=== PATIENT | female | born 1950 | race Caucasian/White ===

== ENCOUNTER 2018-07-07 07:31 | Inpatient (IN) | payer MEDICARE, OTHER ==
[2018-06-27 14:18] VITALS: BP 166/89
[~2018-07-07] VITALS: Ht 172.7 cm; Wt 100.9 kg
[~2018-07-07 07:31] MED LIST: CLON1TAB4 PO; CYAN1TAB29 PO; DICL75TA2 PO; ESCI5TAB7 PO; FLUO40CA9 PO; GABA300C10 PO; LANS30CA60 PO; LEVO125T5 PO; LEVO25TA4 PO; LEVO50TA5 PO; LITH300T3 PO; LORA1TAB PO; OMEP40CA6 PO; QUET100T PO; SPIR50TA4 PO; WARF5TAB PO; WARF7.5T PO
[2018-07-07] MEDS ORDERED: LACTATED RINGERS 1,000 ML IV SCH (08:06)
[2018-07-07] MEDS ORDERED: BUPIVACAINE 0.25% ONE (08:13)
[2018-07-07] MEDS ORDERED: methylPREDNISolone*ACETATE* 80 MG/ML ONE (08:13)
[2018-07-07] MEDS ORDERED: MIDAZOLAM 1 MG/ML, 2ML ONE (08:14)
[2018-07-07] MEDS ORDERED: FENTANYL PF 100 MCG/2ML ONE ×2 (08:14→10:57)
[2018-07-07] MEDS ORDERED: BUPIVACAINE/PF 0.5% ONE (08:19)
[2018-07-07] MEDS ORDERED: CEFAZOLIN 1,000 MG ONE ×4 (08:26→09:23)
[2018-07-07] MEDS ORDERED: PROPOFOL 10 MG/ML, 20ML ONE ×4 (08:26→09:23)
[2018-07-07] MEDS ORDERED: SUCCINYLCHOLINE 20 MG/ML, 10ML ONE ×2 (08:27→09:23)
[2018-07-07] MEDS ORDERED: SCOPOLAMINE PATCH, 1.5MG PATCH.TD72 TD ONE (08:30)
[2018-07-07] MEDS ORDERED: ACETAMINOPHEN 500 MG TABLET PO ONE (08:30)
[2018-07-07] MEDS ORDERED: GABAPENTIN 300 MG CAPSULE PO ONE (08:30)
[2018-07-07 08:41] LABS: INTERNATIONAL NORMALIZED RATIO 1.12 (0.93-1.1); PROTHROMBIN TIME 11.6 Seconds (9.6-11.5)
[2018-07-07] MEDS: OMEPRAZOLE 20 MG CAPSULE.DR PO SCH (09:00)
[2018-07-07] MEDS ORDERED: morphine SULFATE 10 MG/ML, 1ML IV PRN (09:00)
[2018-07-07] MEDS ORDERED: ACETAMINOPHEN 325 MG TABLET PO PRN (09:00)
[2018-07-07] MEDS ORDERED: CEFAZOLIN PMX 2GM/50ML 50 ML IVPB SCH (09:00)
[2018-07-07] MEDS: FLUOXETINE HCL 20 MG CAPSULE PO SCH (09:00)
[2018-07-07] MEDS ORDERED: SENNA/DOCUSATE TABLET PO PRN (09:00)
[2018-07-07] MEDS ORDERED: BISACODYL 10 MG SUPP PR PRN (09:00)
[2018-07-07] MEDS ORDERED: DIPHENHYDRAMINE 25 MG CAPSULE PO PRN (09:00)
[2018-07-07] MEDS: LEVOTHYROXINE 25 MCG TABLET PO SCH (09:00)
[2018-07-07] MEDS ORDERED: ALUMINUM/MAG/SIMETHICONE 30 ML UDC PO PRN (09:00)
[2018-07-07] MEDS ORDERED: MAGNESIUM HYDROXIDE 8%, 30ML UDC PO PRN (09:00)
[2018-07-07] MEDS: LEVOTHYROXINE 125 MCG TABLET PO SCH (09:00)
[2018-07-07] MEDS ORDERED: ONDANSETRON 2MG/ML, 2ML IV PRN (09:00)
[2018-07-07] MEDS ORDERED: CLINDAMYCIN 150 MG/ML, 6ML ONE (09:04)
[2018-07-07] MEDS ORDERED: ONDANSETRON 2MG/ML, 2ML ONE (09:22)
[2018-07-07] MEDS ORDERED: DEXAMETHASONE 4 MG/ML, 1ML ONE ×2 (09:22)
[2018-07-07] MEDS ORDERED: KETOROLAC 30 MG/1 ML ONE (09:23)
[2018-07-07] MEDS ORDERED: GLYCOPYRROLATE 0.4 MG/2 ML, 2ML ONE (09:34)
[2018-07-07] MEDS ORDERED: HYDROmorphone 2 MG/ML, 1ML IV PRN (10:00)
[2018-07-07] MEDS ORDERED: OXYcodone 5 MG/5 ML ORAL.SOL UDC PO PRN (10:00)
[2018-07-07] MEDS ORDERED: PROMETHAZINE 25 MG/ML, 1ML IV PRN (10:00)
[2018-07-07] MEDS ORDERED: OXYcodone 5 MG/5 ML ORAL.SOL UDC ONE (10:57)
[2018-07-07] MEDS: HYDROcodone/APAP 10/325 MG TABLET PO SCH ×3 (11:00→21:13)
[2018-07-07] MEDS: FENTANYL PF 100 MCG/2ML IV PRN ×3 (11:00→11:15)
[2018-07-07] MEDS: DOCUSATE 100 MG CAPSULE PO SCH ×2 (15:15→21:14)
[2018-07-07] MEDS: D5%-0.45% NACL 1,000 ML IV SCH ×2 (15:15→19:00)
[2018-07-07] MEDS: WARFARIN 2.5 MG TABLET PO-COUM SCH ×2 (15:15→18:00)
[2018-07-07] MEDS: CEFAZOLIN 2,000 MG in SODIUM CHLORIDE 0.9% 50 ML IVPB SCH ×2 (15:32→23:42)
[2018-07-07] MEDS ORDERED: HYDR-882 PO (16:19)
[2018-07-07 18:12] VITALS: BP 132/78
[2018-07-07] MEDS ORDERED: GABAPENTIN 300 MG CAPSULE PO SCH (21:00)
[2018-07-07] MEDS ORDERED: QUETIAPINE 100MG TABLET PO SCH (21:00)
[2018-07-07] MEDS ORDERED: QUETIAPINE 25MG TABLET ONE (21:06)
[2018-07-08 00:24] VITALS: BP 139/67
[2018-07-08] MEDS: HYDROcodone/APAP 10/325 MG TABLET PO SCH ×3 (01:00→09:54)
[2018-07-08 04:32] VITALS: BP 136/71
[2018-07-08] MEDS: D5%-0.45% NACL 1,000 ML IV SCH (05:00)
[2018-07-08] MEDS: LEVOTHYROXINE 125 MCG TABLET PO SCH (05:39)
[2018-07-08] MEDS: LEVOTHYROXINE 25 MCG TABLET PO SCH (05:43)
[2018-07-08] MEDS: CEFAZOLIN 2,000 MG in SODIUM CHLORIDE 0.9% 50 ML IVPB SCH (07:34)
[2018-07-08] MEDS: FLUOXETINE HCL 20 MG CAPSULE PO SCH (07:35)
[2018-07-08] MEDS: DOCUSATE 100 MG CAPSULE PO SCH (07:35)
[2018-07-08] MEDS: OMEPRAZOLE 20 MG CAPSULE.DR PO SCH (07:35)
[2018-07-08 09:16] VITALS: BP 154/77
[2018-07-08] MEDS ORDERED: WARFARIN 5 MG TABLET PO-COUM SCH (18:00)
== END 2018-07-08 12:07 | disposition home or self-care (01) | DRG 483 ==
LOC: ORIP 07:31 → 4NOR 12:05 → DCLOUNGE 07-08 11:56
PROVIDERS: ADMIT Orthopaedic Surgery; ATTEND Orthopaedic Surgery
PROC: 3E0T3BZ Introduction of Anesthetic Agent into Peripheral Nerves and Plexi, Percutaneous Approach (ICD-10-PCS; 2018-07-07)
PROC: 0LS30ZZ Reposition Right Upper Arm Tendon, Open Approach (ICD-10-PCS; 2018-07-07)
PROC: 0RRJ00Z Replacement of Right Shoulder Joint with Reverse Ball and Socket Synthetic Substitute, Open Approach (ICD-10-PCS; principal; 2018-07-07 09:30)
DX: M19.012 Primary osteoarthritis, left shoulder (principal); M25.319 Other instability, unspecified shoulder; M65.811 Other synovitis and tenosynovitis, right shoulder; K21.9 Gastro-esophageal reflux disease without esophagitis; Z90.49 Acquired absence of other specified parts of digestive tract; M25.812 Other specified joint disorders, left shoulder; Z90.710 Acquired absence of both cervix and uterus; Z98.51 Tubal ligation status; Z90.722 Acquired absence of ovaries, bilateral
CPT/HCPCS: 36415; 85610; 85730; C1713; C1776; J0690; J1100; J1885; J2250; J2405; J2704; J3010; J3490; C1769; J0330; J1040; J7120